=== PATIENT | female | born 1950 | race Two or more races ===

== ENCOUNTER 2024-04-19 08:17 | Outpatient (AMB) | payer MEDICAID, SELFPAY ==
--- NOTE | 2024-04-19 08:32 | PD.ORTHCLVIS ---
Vital signs 04/19/24 08:33 Height 1.52 m Height Method Stated Weight 68.719 kg Weight Measurement Method Standing Scale BMI 29.7 BP 144/70 H Blood Pressure Source Automatic Cuff Blood Pressure Location Right Upper Arm Position Sitting Respiration 18 Pulse 96 Pulse Source Monitor Temp 97.8 F Temp Source Temporal Artery Scan Pulse Oximetry (%) 96 Oxygen Delivery Method Room Air Med/Allergies Allergies & Medications Allergies No Known Allergies Allergy (Verified 04/19/24 08:34) Medication Reconciliation metformin 500 mg tablet 500 mg PO BID 11/14/23 [History Confirmed 04/19/24] acetaminophen 500 mg tablet (Acetaminophen Extra Strength) 1,000 mg (2 x 500 mg) PO Q6H PRN pain #90 tabs 01/24/24 [Rx Confirmed 04/19/24] aspirin 81 mg tablet,delayed release 81 mg PO BID #60 tabs 01/24/24 [Rx Confirmed 04/19/24] doxycycline hyclate 100 mg tablet 100 mg PO BID #14 tabs 01/24/24 [Rx Confirmed 04/19/24] gabapentin 300 mg capsule 300 mg PO .qhs #30 caps 01/24/24 [Rx Confirmed 04/19/24] oxycodone 5 mg tablet 5 mg PO Q6H PRN pain #28 tabs 01/24/24 [Rx Confirmed 04/19/24] sennosides 8.6 mg-docusate sodium 50 mg tablet (Senna-S) 1 tab-cap PO QDAY #30 tabs 01/24/24 [Rx Confirmed 04/19/24] ondansetron 4 mg disintegrating tablet 4 mg PO Q8H PRN nausea and vomiting #30 tabs 01/26/24 [Rx Confirmed 04/19/24] Subjective Visit Visit for: follow up visit Immunization / Flu Flu Vaccine in the Last 12 Months: Yes Flu Vaccine Exclusion Criteria: Refused by Patient History of Present Illness Chief complaint: FOLLOW UP ON TKA Date of 1st surgery (if applicable): 01/23 Patient is 3 months status post right total hip replacement. She is doing well. She is doing well Personal History Occupation: RETIRED Red flag PMH: none Pain Pain level (0-10): 0 Pain duration: NO PAIN Pain location: anterior and posterior Pain quality: dull and aching Pain timing: increases with activity Associated signs & symptoms: none Ambulatory data Ambulatory device: walker Treatments Improvement with previous injections: No Improvement with PT: No Improvement with NSAIDS: n/a Review of Systems Review of Systems: All systems negative unless otherwise noted in HPI. Exam Exam Patient is in no acute distress and is cooperative with the examination today. Patient has a normal mood and affect. Breathing is nonlabored. In no respiratory distress. Bilateral extremities were evaluated and demonstrates sensation intact to light touch. Palpable pedal pulses are present. No significant edema is present. Right hip incision is clean dry intact Assessment and Plan Problem List (1) Status post total hip replacement, right: Status: Acute Plan: Patient is doing well status post right total hip replacement. Patient is doing well. We will see her back in approximately 2 months. She should continue with outpatient physical therapy. Advanced Care Planning Discussion Advance care planning discussed with:: patient Office Procedures GNS Level of Care Nursing/Assessment Patient Status: Established Patient Nursing Assessment/Reassesment: Medication Reconciliation, Update PMH in EMR and Vital Signs Coordination of Care: Complex Care and Chronic Disease 1-5, Education Complex Pt/Fam, Consent,records obtained, informed consent, 1 Ins Authorization, Lab and Imaging orders, Results/Orders obtained and Staff clarify orders Established Patient Charge Established Patient Point Assignment: 125 Established Patient Point Charge: EP Level 3 (80-115) Past Medical History Past Medical History Have you ever been diagnosed with any of the following: Neurological Problems Seizures: No Cardiology Problems Congestive Heart Failure: No Respiratory Problems Chronic Obstructive Pulmonary Disease (COPD): No Smoking: No Smoking Exposure: No Stomache/Intestinal Problems Hepatitis: No Genital/Urinary Problems Renal Disease: No Reproductive Problems Previous Pregnancies: Yes Musculoskeletal Problems Arthritis: Yes Fractures: Yes (right wrist) Head,Eye,Nose,Throat Problems Cataracts: Yes (bilateral) Endocrine Problems Diabetes Mellitus Type 1: No Diabetes Mellitus Type 2: Yes Other Problems Hospitalization: No Shingles: No Falls: No Blood Transfusions: No Blood Transfusion Reaction: No Anesthesia Reactions: No Cancer: No Surgical History Total Hip Replacement: Yes
[2024-04-19 08:33] VITALS: BP 144/70; PULSE 96; RESP 18; TEMP 36.6; O2SAT 96; BMI 29.7
== END 2024-04-19 08:47 | disposition home or self-care (01) ==
LOC: HODSRG 08:17
PROVIDERS: PCP Student in an Organized Health Care Education/Training Program; Referring Provider Student in an Organized Health Care Education/Training Program; Supervising Provider Orthopaedic Surgery Adult Reconstructive Orthopaedic Surgery; Visit Provider Orthopaedic Surgery Adult Reconstructive Orthopaedic Surgery
DX: Z96.641 Presence of right artificial hip joint (principal)
CPT/HCPCS: 99213; G0463

== ENCOUNTER → 2024-05-31 | Outpatient (CLI) | payer MEDICAID, SELFPAY ==
--- NOTE | 2024-05-31 | XR_ITS ---
Examination:Right hip AP, lateral, AP pelvis 3 views Technique: Hip AP lateral, AP pelvis, 3 views Exam date and time:May 31 2024 to 36 hours INDICATIONS: Right hip pain beginning one month ago FINDINGS: Comparison March 06, 2024 Moderate osteopenia Total right hip arthroplasty. Satisfactory alignment No dislocation or right hip fracture Left hip intact as well as bones of the pelvis IMPRESSION: Total right hip arthroplasty with satisfactory alignment No acute hip or pelvic fracture.
== END | disposition home or self-care (01) ==
PROVIDERS: PCP Internal Medicine; Referring Provider Orthopaedic Surgery Adult Reconstructive Orthopaedic Surgery; Visit Provider Orthopaedic Surgery Adult Reconstructive Orthopaedic Surgery
DX: M25.551 Pain in right hip (principal); Z96.641 Presence of right artificial hip joint
CPT/HCPCS: 73502

== ENCOUNTER 2024-06-04 10:28 | Outpatient (AMB) | payer MEDICAID, SELFPAY ==
[2024-06-04 10:37] VITALS: BP 150/84; PULSE 98; RESP 18; TEMP 36.9; O2SAT 94; BMI 28.9
--- NOTE | 2024-06-04 10:37 | PD.ORTHCLVIS ---
Vital signs 06/04/24 10:37 Height 1.52 m Height Method Stated Weight 66.763 kg Weight Measurement Method Standing Scale BMI 28.9 BP 150/84 H Blood Pressure Source Automatic Cuff Blood Pressure Location Left Upper Arm Position Sitting Respiration 18 Pulse 98 Pulse Source Monitor Temp 98.4 F Temp Source Temporal Artery Scan Pulse Oximetry (%) 94 L Oxygen Delivery Method Room Air Med/Allergies Allergies & Medications Allergies No Known Allergies Allergy (Verified 06/04/24 10:38) Medication Reconciliation metformin 500 mg tablet 500 mg PO BID 11/14/23 [History Confirmed 06/04/24] acetaminophen 500 mg tablet (Acetaminophen Extra Strength) 1,000 mg (2 x 500 mg) PO Q6H PRN pain #90 tabs 01/24/24 [Rx Confirmed 06/04/24] aspirin 81 mg tablet,delayed release 81 mg PO BID #60 tabs 01/24/24 [Rx Confirmed 06/04/24] doxycycline hyclate 100 mg tablet 100 mg PO BID #14 tabs 01/24/24 [Rx Confirmed 06/04/24] gabapentin 300 mg capsule 300 mg PO .qhs #30 caps 01/24/24 [Rx Confirmed 06/04/24] oxycodone 5 mg tablet 5 mg PO Q6H PRN pain #28 tabs 01/24/24 [Rx Confirmed 06/04/24] sennosides 8.6 mg-docusate sodium 50 mg tablet (Senna-S) 1 tab-cap PO QDAY #30 tabs 01/24/24 [Rx Confirmed 06/04/24] ondansetron 4 mg disintegrating tablet 4 mg PO Q8H PRN nausea and vomiting #30 tabs 01/26/24 [Rx Confirmed 06/04/24] Exam Exam Patient is in no acute distress and is cooperative with the examination today. Patient has a normal mood and affect. Breathing is nonlabored. In no respiratory distress. Bilateral extremities were evaluated and demonstrates sensation intact to light touch. Palpable pedal pulses are present. No significant edema is present. Right hip incision is clean dry intact Assessment and Plan Problem List (1) Status post total hip replacement, right: Status: Acute Plan: Patient is doing well status post right total hip replacement. Patient is doing well. She is approximately 4 to 5 months out and has minimal pain. She has significant bilateral knee arthritis as well but she is doing well for now. We will see her back in approximately 6 months Advanced Care Planning Discussion Advance care planning discussed with:: patient Office Procedures GNS Level of Care Nursing/Assessment Patient Status: Established Patient Nursing Assessment/Reassesment: Medication Reconciliation, Update PMH in EMR and Vital Signs Coordination of Care: Complex Care and Chronic Disease 1-5, Education Complex Pt/Fam, Consent,records obtained, informed consent, Results/Orders obtained and Staff clarify orders Established Patient Charge Established Patient Point Assignment: 95 Established Patient Point Charge: EP Level 3 (80-115) [place] Intake Visit Data Collection New Patient or Established: Established Patient (seen at [facility] within 3 years) Reason for Visit:: FOLLOW UP HIP REPLACEMENT Verbal consent obtained for Telemed visit?: No Nuclear Medicine Medical Director Required: No PCP or OBGYN visit in last 3 months: Yes Hx Now: No Do You Feel Safe at Home: Yes Authorities Contacted: N/A Questionairres Past Medical History Past Medical History Have you ever been diagnosed with any of the following: Neurological Problems Seizures: No Cardiology Problems Congestive Heart Failure: No Respiratory Problems Chronic Obstructive Pulmonary Disease (COPD): No Smoking: No Smoking Exposure: No Stomache/Intestinal Problems Hepatitis: No Genital/Urinary Problems Renal Disease: No Reproductive Problems Previous Pregnancies: Yes Musculoskeletal Problems Arthritis: Yes Fractures: Yes (right wrist) Head,Eye,Nose,Throat Problems Cataracts: Yes (bilateral) Endocrine Problems Diabetes Mellitus Type 1: No Diabetes Mellitus Type 2: Yes Other Problems Hospitalization: No Shingles: No Falls: No Blood Transfusions: No Blood Transfusion Reaction: No Anesthesia Reactions: No Cancer: No Surgical History Total Hip Replacement: Yes Subjective Visit Visit for: follow up visit and hip Immunization / Flu Flu Vaccine in the Last 12 Months: No Flu Vaccine Exclusion Criteria: No Exclusion Criteria History of Present Illness Chief complaint: right hip replacement Patient is doing well status post right hip replacement. The surgery was approximately 5 months ago. She has no limp and is doing well Pain Pain level (0-10): 0 Associated signs & symptoms: none Ambulatory data Ambulatory device: cane Treatments Improvement with previous injections: No Improvement with PT: No Improvement with NSAIDS: no Review of Systems Review of Systems: All systems negative unless otherwise noted in HPI.
== END 2024-06-04 10:56 | disposition home or self-care (01) ==
LOC: HODSRG 10:28
PROVIDERS: PCP Student in an Organized Health Care Education/Training Program; Referring Provider Student in an Organized Health Care Education/Training Program; Supervising Provider Orthopaedic Surgery Adult Reconstructive Orthopaedic Surgery; Visit Provider Orthopaedic Surgery Adult Reconstructive Orthopaedic Surgery
DX: Z96.641 Presence of right artificial hip joint (principal); M17.0 Bilateral primary osteoarthritis of knee
CPT/HCPCS: 99213; G0463